=== PATIENT | female | born 1980 | race Caucasian/White ===

== ENCOUNTER 2020-01-12 20:53 | Outpatient (CLI) | payer MEDICAID, OTHER ==
[~2020-01-12] VITALS: Ht 162.6 cm; Wt 72.0 kg
--- NOTE | 2020-01-12 21:05 | NUR ---
MADDIE HEAD presented to unit via ambulatory from ED, accompanied by self, with c/o SWELLING OF LEGS. MADDIE HEAD weighed, gowned, voided, and to bed. EFHM and TOCO applied, VS taken. MADDIE HEAD oriented to bed controls, call light, TV, heat, and A/C controls. above and further assessments carried out per this rn.
[2020-01-12 21:30] VITALS: BP 114/67
[2020-01-12 21:41] LABS: BILIRUBIN,URINE NEGATIVE (NEGATIVE); CLARITY,URINE CLEAR; COLOR,URINE YELLOW; GLUCOSE, URINE (UA) NEGATIVE (NEGATIVE); KETONES,URINE 2+ (NEGATIVE); LEUKOCYTE ESTERASE ,URINE 1+ (NEGATIVE); NITRITE,URINE NEGATIVE (NEGATIVE); PROTEIN,URINE TRACE (NEGATIVE)
[2020-01-12 21:49] LABS: BACTERIA,URINE TRACE /HPF
[2020-01-12 21:50] LABS: YEAST,URINE FEW /HPF
[2020-01-12] MEDS ORDERED: AMOX125T PO (22:13)
[2020-01-12] MEDS ORDERED: fluCOnazole (DIFLUCAN) 100 MG TAB PO ONE (22:15)
[2020-01-12] MEDS ORDERED: BUPR1FIL SL (22:15)
[2020-01-12 22:20] VITALS: BP 114/57
--- NOTE | 2020-01-12 22:20 | NUR ---
Discharge packet given and explained, understanding voiced per pt, see emar.
--- NOTE | 2020-01-12 23:30 | NUR ---
Pt ambulatory off unit at this time accompanied by self as s.o has arrived with private vehicle for transport.
--- NOTE | 2020-01-13 08:06 | Physician Query-Final Dx ---
Clinic Account Progress/Dx Physician Query: Please give diagnosis Please include # weeks gestation Date of Service Jan 12, 2020 at 20:53 MISTI KHOURY Jan 13, 2020 08:06
== END 2020-01-12 23:30 | disposition home or self-care (01) ==
LOC: LDRP 20:53 → WSo 20:53
PROVIDERS: ATTEND Obstetrics & Gynecology
DX: O26.899 Other specified pregnancy related conditions, unspecified trimester (principal); M79.89 Other specified soft tissue disorders; Z3A.00 Weeks of gestation of pregnancy not specified
CPT/HCPCS: 81000; 87088; 99213

== ENCOUNTER 2020-03-01 20:06 | Outpatient (CLI) | payer MEDICAID ==
[~2020-03-01] VITALS: Ht 162.6 cm; Wt 100.8 kg
[~2020-03-01 20:06] MED LIST: AMOX125T PO; BUPR1FIL SL
--- NOTE | 2020-03-01 20:15 | NUR ---
MADDIE HEAD presented to unit via ambulation from ED, accompanied by self, with c/o LOSS OF MUCOUS PLUG;CONTRACTIONS. MADDIE HEAD weighed, gowned, voided, and to bed. EFHM and TOCO applied, VS taken. MADDIE HEAD oriented to bed controls, call light, TV, heat, and A/C controls.
[2020-03-01 20:30] VITALS: BP 103/66
[2020-03-01 20:45] VITALS: BP 103/66
[2020-03-01 20:46] VITALS: BP 103/66
[2020-03-01 20:47] LABS: BILIRUBIN,URINE NEGATIVE (NEGATIVE); CLARITY,URINE CLEAR; COLOR,URINE YELLOW; GLUCOSE, URINE (UA) NEGATIVE (NEGATIVE); KETONES,URINE NEGATIVE (NEGATIVE); LEUKOCYTE ESTERASE ,URINE NEGATIVE (NEGATIVE); NITRITE,URINE NEGATIVE (NEGATIVE); PH,URINE 6.5 (5-9); PROTEIN,URINE TRACE (NEGATIVE)
[2020-03-01 21:05] LABS: BACTERIA,URINE TRACE /HPF; RBC,URINE 0-2 /HPF; WBC,URINE 0-2 /HPF
[2020-03-01 21:06] LABS: AMORPHOUS SEDIMENT,UR RARE AMOR URATES /LPF
--- NOTE | 2020-03-01 21:08 | NUR ---
Dr. Oshea called and informed of pt arrival, pt history, pt complaints, SVE, monitor tracing, UA results, pt stating "I feel much more relaxed here, now that I'm out of that place." Orders received for discharge.
--- NOTE | 2020-03-01 21:22 | NUR ---
Discharge instructions reviewed with pt and s.o. No questions or concerns voiced. Signature sheet signed, placed on chart. Pt ambulating off unit at time with s.o. at side. No signs of distress noted.
--- NOTE | 2020-03-02 08:17 | Physician Query-Final Dx ---
MISTI KHOURY 03/02/20 0817: Clinic Account Progress/Dx Physician Query: Please give diagnosis Please include # weeks gestation Date of Service Mar 01, 2020 at 20:06 JAROCHO GUSMAN DO 03/02/20 1429: Clinic Account Progress/Dx DIAGNOSIS: Diagnosis 37 weeks IUP Vaginal discharge Irregular contractions MISTI KHOURY Mar 02, 2020 08:17 JAROCHO GUSMAN DO Mar 02, 2020 14:29
== END 2020-03-01 21:22 | disposition home or self-care (01) ==
LOC: WSo 20:06 → LDRP 20:06 → WSo 21:22
PROVIDERS: ATTEND Obstetrics & Gynecology
DX: O62.9 Abnormality of forces of labor, unspecified (principal); O26.853 Spotting complicating pregnancy, third trimester; Z3A.37 37 weeks gestation of pregnancy
CPT/HCPCS: 81000; 87088

== ENCOUNTER 2020-03-08 05:32 | Outpatient (RCR) | payer MEDICAID ==
[~2020-03-08] VITALS: Ht 162.6 cm; Wt 71.8 kg
[~2020-03-08 05:32] MED LIST changes: +BUPR2TAB SL; +MAGN400T50 PO; +PNV1TABL9 PO
== END 2020-03-08 09:22 | disposition home or self-care (01) ==
LOC: PREOP 05:32
PROVIDERS: ATTEND Obstetrics & Gynecology
DX: Z01.812 Encounter for preprocedural laboratory examination (principal); B19.20 Unspecified viral hepatitis C without hepatic coma; Z20.828 Contact with and (suspected) exposure to other viral communicable diseases
CPT/HCPCS: 87635

== ENCOUNTER 2020-03-11 12:00 | Inpatient (IN) | payer MEDICAID ==
[~2020-03-11] VITALS: Ht 162.6 cm; Wt 73.4 kg
[2020-03-12] VITALS (8 sets, daily range): BP systolic 101–119; BP diastolic 48–87
--- NOTE | 2020-03-12 08:15 | NUR ---
MADDIE HEAD admitted to room 3314-1, with an admitting diagnosis of repeat section, on 03/12/20 from via ambulation, accompanied by self. MADDIE HEAD introduced to surroundings, call light, bed controls, phone, TV, temperature control, lights, meal times, smoking policy, visitor policy, side rail policy, bathrooms and showers. Patient Rights given to patient in the handbook. MADDIE HEAD verbalizes understanding that [facility] is not responsible for the loss or damage to any personal effects or valuables that are kept in the patients posession during their hospitalization. The following Patient Care Plans were discussed with the patient: Discharge Planning, pain management. MADDIE HEAD verbalizes understanding of Interdisciplinary Patient Education. Patient and/or family were informed about the Rapid Response Team and its purpose.
[2020-03-12] MEDS ORDERED: LACTATED RINGERS 1,000 ML IV PRN (08:52)
[2020-03-12] MEDS ORDERED: METOCLOPRAMIDE INJ 10 MG/2 ML (REGLAN) ONE (08:54)
[2020-03-12] MEDS ORDERED: CLINDAMYCIN 900 MG/50 ML IVPB 50 ML IV ONE ×2 (08:55→09:00)
[2020-03-12] MEDS ORDERED: FAMOTIDINE 20MG/2ML IV (PEPCID) ONE (08:55)
[2020-03-12] MEDS ORDERED: LACTATED RINGERS 1,000 ML IV ONE (08:55)
[2020-03-12] MEDS ORDERED: CITRIC ACID/SOB CIT (BICITRA) 30 ML UDC ONE (08:55)
[2020-03-12] MEDS ORDERED: metroNIDAZOLE 500MG/100ML IVPB 100 ML ONE (08:55)
[2020-03-12] MEDS ORDERED: CATHETER FLUSH 10 ML SYR IV PRN (09:00)
[2020-03-12] MEDS ORDERED: METOCLOPRAMIDE INJ 10 MG/2 ML (REGLAN) IV ONE (09:00)
[2020-03-12] MEDS ORDERED: metroNIDAZOLE 500MG/100ML IVPB 100 ML IV ONE (09:00)
[2020-03-12] MEDS ORDERED: CITRIC ACID/SOB CIT (BICITRA) 30 ML UDC PO ONE (09:00)
[2020-03-12] MEDS: LACTATED RINGERS 1,000 ML IV PRN ×2 (09:30→11:43)
[2020-03-12 09:40] LABS: BASOPHILS % (AUTO) 0 % (0-10); EOSINOPHILS # (AUTO) 0.1 10^3/uL (0.0-0.3); EOSINOPHILS % (AUTO) 1 % (0-10); HEMATOCRIT 41 % (35-52); HEMOGLOBIN 13.2 g/dL (11.5-16.0); LYMPHOCYTES # (AUTO) 2.2 10^3/uL (1.0-4.0); LYMPHOCYTES % (AUTO) 22 % (12-44); MEAN CORPUSCULAR HEMOGLOBIN 26 pg (25-34); MEAN CORPUSCULAR HGB CONC 32 g/dL (32-36); MEAN CORPUSCULAR VOLUME 81 fL (80-99); MEAN PLATELET VOLUME 9.6 fL (9.0-12.2); MONOCYTES # (AUTO) 0.8 10^3/uL (0.0-1.0); MONOCYTES % (AUTO) 8 % (0-12); NEUTROPHILS # (AUTO) 6.6 10^3/uL (1.8-7.8); NEUTROPHILS % (AUTO) 68 % (42-75); PLATELET COUNT 351 10^3/uL (130-400); WHITE BLOOD COUNT 9.8 10^3/uL (4.3-11.0)
[2020-03-12 09:47] LABS: AMPHETAMINE SCREEN, URINE NEGATIVE (NEGATIVE); BARBITURATE SCREEN URINE NEGATIVE (NEGATIVE); BENZODIAZEPINES SCREEN URINE NEGATIVE (NEGATIVE); CANNABINOID SCREEN, URINE NEGATIVE (NEGATIVE); COCAINE SCREEN URINE NEGATIVE (NEGATIVE); METHADONE STAT NEGATIVE (NEGATIVE); METHAMPHETAMINE SCREEN URINE S NEGATIVE (NEGATIVE); OPIATE SCREEN URINE NEGATIVE (NEGATIVE); OXYCODONE STAT NEGATIVE (NEGATIVE); PROPOXYPHENE STAT NEGATIVE (NEGATIVE); TRICYCLIC ANTIDEPRESSANTS SCRE NEGATIVE (NEGATIVE)
[2020-03-12 09:58] LABS: BILIRUBIN,URINE NEGATIVE (NEGATIVE); CLARITY,URINE SL CLOUDY; COLOR,URINE YELLOW; GLUCOSE, URINE (UA) NEGATIVE (NEGATIVE); KETONES,URINE 1+ (NEGATIVE); LEUKOCYTE ESTERASE ,URINE NEGATIVE (NEGATIVE); NITRITE,URINE NEGATIVE (NEGATIVE); PROTEIN,URINE TRACE (NEGATIVE)
[2020-03-12 10:00] LABS: ALANINE AMINOTRANSFERASE 44 U/L (0-55); ALBUMIN 3.3 GM/DL (3.2-4.5); ALKALINE PHOSPHATASE 157 U/L (40-136); BILIRUBIN,TOTAL 0.5 MG/DL (0.1-1.0); BUN/CREATININE RATIO 10; CALCIUM 8.9 MG/DL (8.5-10.1); CARBON DIOXIDE 17 MMOL/L (21-32); CHLORIDE 105 MMOL/L (98-107); CREATININE SERUM 0.62 MG/DL (0.60-1.30); GFR ESTIMATED > 60; GLUCOSE 77 MG/DL (70-105); POTASSIUM 3.6 MMOL/L (3.6-5.0); SODIUM 137 MMOL/L (135-145); TOTAL PROTEIN 5.9 GM/DL (6.4-8.2)
[2020-03-12] MEDS ORDERED: OXYTOCIN PRE-MIX DRIP 500 ML IV SCH (10:08)
--- NOTE | 2020-03-12 10:08 | History & Physical-OB ---
OB - Chief Complaint & HPI Date/Time Date of Admission: Date of Admission: Mar 12, 2020 at 8:15 am Date seen by a Provider: Mar 12, 2020 Time Seen by a Provider: 09:30 Chief Complaint/History OB-Reason for Admission/Chief: Section Hx : 2 Hx Para: 1 Expected Date of Delivery: Mar 17, 2020 Gestational Age in Weeks: 39 Gestational Age in Days: 2 Indication for : desires repeat Admission Nurse Assessment Rev: Yes History of Labs Opos Antibody neg RI RPR NR HBsAg NR HIV NR GC neg GBS neg Allergies and Home Medications Allergies Coded Allergies: cefaclor (Verified Allergy, Unknown, 01/12/20) morphine (Verified Allergy, Unknown, 01/12/20) sulfamethoxazole (Verified Allergy, Unknown, 01/12/20) trimethoprim (Verified Allergy, Unknown, 01/12/20) Home Medications Buprenorphine HCl 2 Mg Tab.subl, 2 MG SL TID, (Reported) Magnesium Oxide 400 Mg Tablet, 400 MG PO DAILY, (Reported) Pnv Cmb#21/Iron/Folic Acid 1 Each Tablet, 1 EACH PO DAILY, (Reported) Patient Home Medication List Home Medication List Reviewed: Yes OB - History Hx of Present Care: Yes (Late care starting at 30 weeks) Obstetrical Complications: Other (Late care) Medical Complications: Other (HepC history, Opioid dependence on Suboxone therapy) Patient Past Medical History HC history, Hx of Drug use Social History/Family History 2nd Hand Smoke Exposure: No OB - Admission Exam Physical Exam HEENT: NCAT Heart: Rhythm Normal Lungs: Clear Abdomen: Gravid Extremities: Normal Reflexes: Normal Heart Rate: 130's Accelerations: Accelerations Present Decelerations: No Decelerations Short Term Variability: Present [place]ather Variability: Average (6-25) Contractions on Admission: >10 Minutes Apart Labs Laboratory Tests Test 03/12/20 09:00 03/12/20 09:20 Range/Units Urine Opiates Screen NEGATIVE NEGATIVE Urine Oxycodone Screen NEGATIVE NEGATIVE Urine Methadone Screen NEGATIVE NEGATIVE Urine Propoxyphene Screen NEGATIVE NEGATIVE Urine Barbiturates Screen NEGATIVE NEGATIVE Ur Tricyclic Antidepressants Screen NEGATIVE NEGATIVE Urine Phencyclidine Screen NEGATIVE NEGATIVE Urine Amphetamines Screen NEGATIVE NEGATIVE Urine Methamphetamines Screen NEGATIVE NEGATIVE Urine Benzodiazepines Screen NEGATIVE NEGATIVE Urine Cocaine Screen NEGATIVE NEGATIVE Urine Cannabinoids Screen NEGATIVE NEGATIVE White Blood Count 9.8 4.3-11.0 10^3/uL Red Blood Count 5.08 3.80-5.11 10^6/uL Hemoglobin 13.2 11.5-16.0 g/dL Hematocrit 41 35-52 % Mean Corpuscular Volume 81 80-99 fL Mean Corpuscular Hemoglobin 26 25-34 pg Mean Corpuscular Hemoglobin Concent 32 32-36 g/dL Red Cell Distribution Width 22.7 H 10.0-14.5 % Platelet Count 351 130-400 10^3/uL Mean Platelet Volume 9.6 9.0-12.2 fL Immature Granulocyte % (Auto) 1 % Neutrophils (%) (Auto) 68 42-75 % Lymphocytes (%) (Auto) 22 12-44 % Monocytes (%) (Auto) 8 0-12 % Eosinophils (%) (Auto) 1 0-10 % Basophils (%) (Auto) 0 0-10 % Neutrophils # (Auto) 6.6 1.8-7.8 10^3/uL Lymphocytes # (Auto) 2.2 1.0-4.0 10^3/uL Monocytes # (Auto) 0.8 0.0-1.0 10^3/uL Eosinophils # (Auto) 0.1 0.0-0.3 10^3/uL Basophils # (Auto) 0.0 0.0-0.1 10^3/uL Immature Granulocyte # (Auto) 0.1 0.0-0.1 10^3/uL OB - Assessment/Plan/Diagnosis Assessment Assessment: section Admission Dx 39 yo @ 39.2 weeks Previous HepC hx Currently on suboxone therapy Hx of drug abuse Admission Status: Inpatient Order (span 2 midnights) Reason for Inpatient Admission: Repeat at term Plan Plan: Section JAROCHO GUSMAN DO Mar 12, 2020 10:08 am
[2020-03-12] MEDS ORDERED: ONDANSETRON 4 MG/2 ML (SDV) Z0FRAN IVP PRN (10:15)
[2020-03-12] MEDS ORDERED: MEASLES,MUMPS,RUBELLA 1 EA INJ SC SCH (10:15)
[2020-03-12] MEDS ORDERED: TETANUS,DIPTH,PERTUSS P/F (BOOSTRIX) 0.5 ML VIAL IM SCH (10:15)
[2020-03-12 10:17] LABS: AMORPHOUS SEDIMENT,UR FEW AMOR URATES /LPF; BACTERIA,URINE MODERATE /HPF; SQUAMOUS EPITHELIAL CELL,UR 25-50 /HPF
[2020-03-12] MEDS ORDERED: HYDR-34 PO (10:18)
[2020-03-12] MEDS ORDERED: IBUP-844 PO (10:18)
[2020-03-12] MEDS ORDERED: DCS100C PO (10:18)
--- NOTE | 2020-03-12 10:19 | Discharge Inst-Women's Service ---
Discharge Inst-Women's Serv Depart Medication/Instructions New, Converted or Re-Newed RX: RX on Chart Final Diagnosis POD 3 RLTCS Problems Reviewed?: Yes Consults/Follow Up Additional Follow Up: Yes Orders/Referrals Dr. Oshea in 7-10 days and in 6 weeks. Regular follow up with Dr. Ocasio Activity Activity: Activity as Tolerated Driving Instructions: No Driving for 1 Week NO SMOKING: NO SMOKING Nothing Inside Vagina: No Douching, No [place], No Tampons Diet Discharge Diet: No Restrictions Symptoms to Report to : Bleeding Excessive, Pain Increased, Fever Over 101 Degrees F, Vaginal Bleeding Increase, Questions/Concerns For Any Problems or Questions: Contact Your Physician Skin/Wound Care Infection Signs and Symptoms: Increased Redness, Foul Odor of Wound, Increased Drainage, Skin Itchy or Has a Rash, Increased Swelling, Temperature Above 101 F Operative Area Clean and Dry: Keep Incision Clean/Dry Stitches/Pablo/Dermabond: Dermabond, Care of Stitches Bathing Instructions: JAROCHO Nelson DO Mar 12, 2020 10:19 am
[2020-03-12] MEDS ORDERED: fentaNYL INJECTION 100 MCG/2 ML AMP ONE (10:42)
[2020-03-12] MEDS ORDERED: PHENYLEPHRINE 100 MCG/ML 10 ML (ANESTHESIA) SYR ONE (11:11)
[2020-03-12] MEDS ORDERED: OXYTOCIN PRE-MIX DRIP 1,000 ML IV ONE (11:11)
[2020-03-12] MEDS ORDERED: ONDANSETRON 4 MG/2 ML (SDV) Z0FRAN ONE (11:35)
[2020-03-12] MEDS ORDERED: CATHETER FLUSH 10 ML SYR IV SCH (14:00)
[2020-03-12] MEDS: KETOROLAC 30 MG/ML VIAL IV SCH ×2 (14:20→20:26)
--- NOTE | 2020-03-12 15:19 | NUR ---
CM/SS visited with patient for social service consult. [facility] report ID: [id number]- This sw made report for close follow up and services/education to be provided for patient. This worker does not have an immediate concern for baby's safety and wellbeing. The patient was defensive when this sw introduced herself. She was "perturbed" that this sw was given the information about where she lived and her past history of drug use. She asked this sw if it was allowed for me to know that. CM/SS calmly explained role of social welfare research worker and that this sw cannot take the baby as it appeared to be the main concern. After the patient understood role of social welfare research worker patient appeared to calm down and open up. This sw and the patient discussed different resources in the area. Home: Patient lives in a [facility] in [place]. She has been living there for 3 months. She reports that she receives counseling via zoom currently. They have moved the patient into an individual house; therefore they wont be exposed to Covid. The patient owns her own home here in [place]. Substance use: The patient would not elaborate about past substance use history. However, she reports being clean for the last 3 months. She states they test her every other day at the home. She is interested in participating with [facility]'s outpatient drug and alcohol and mental health counseling. The patient states that at this time the reintegration home does not seem like they want her doing that. Supports: The patient had a close friend in the room with her. She was also a resident of the women's home. The patient does want the father of the baby to be present in the life and for them to do counseling together. Resources: This sw gave the patient resources for Parents as Teachers, WIC, Healthy Families and [facility] [employer]. The patient was curious about having resources and used to have Parents as Teachers. She seemed interested in re-enrolling. CM/SS will follow.
[2020-03-12] MEDS: HYDROcodone/APAP 7.5 MG/325 MG (LORTAB, LORCET PLUS) TABLET PO PRN ×2 (19:13→20:59)
[2020-03-12] MEDS: DOCUSATE SODIUM 100 MG (COLACE) CAP PO SCH (20:25)
[2020-03-13] MEDS ORDERED: IBUPROFEN 600 MG (MOTRIN) TAB PO ONE ×2 (02:19→08:37)
[2020-03-13] MEDS: IBUPROFEN 600 MG (MOTRIN) TAB PO SCH ×2 (02:25→08:46)
[2020-03-13 02:27] VITALS: BP 108/57
[2020-03-13] MEDS: HYDROcodone/APAP 7.5 MG/325 MG (LORTAB, LORCET PLUS) TABLET PO PRN ×2 (02:30→08:45)
[2020-03-13 06:30] VITALS: BP 118/80
[2020-03-13 07:22] LABS: BASOPHILS % (AUTO) 0 % (0-10); EOSINOPHILS # (AUTO) 0.2 10^3/uL (0.0-0.3); EOSINOPHILS % (AUTO) 2 % (0-10); HEMATOCRIT 37 % (35-52); HEMOGLOBIN 11.8 g/dL (11.5-16.0); LYMPHOCYTES # (AUTO) 2.4 10^3/uL (1.0-4.0); LYMPHOCYTES % (AUTO) 23 % (12-44); MEAN CORPUSCULAR HEMOGLOBIN 27 pg (25-34); MEAN CORPUSCULAR HGB CONC 32 g/dL (32-36); MEAN CORPUSCULAR VOLUME 84 fL (80-99); MEAN PLATELET VOLUME 9.8 fL (9.0-12.2); MONOCYTES % (AUTO) 10 % (0-12); NEUTROPHILS # (AUTO) 6.8 10^3/uL (1.8-7.8); NEUTROPHILS % (AUTO) 65 % (42-75); PLATELET COUNT 310 10^3/uL (130-400); WHITE BLOOD COUNT 10.4 10^3/uL (4.3-11.0)
--- NOTE | 2020-03-13 08:07 | Postpartum Progress Note ---
Note Note Day # 1 Subjective: Patient is without complaints. Ambulating, voiding. Tolerating a regular diet without nausea or vomiting. Normal lochia. Pain is well controlled with oral pain medications. Objective: Physical Exam: General - Alert and oriented, no apparent distress Abdomen - Soft, appropriately tender to palpation, non-distended, fundus firm at umbilicus Extremities - no edema, negative Kristin's bilaterally Incision- c/d/i Assessment: POD 1 RLTCS Acute blood loss anemia Hx of Ilicit drug use Hep C hx Plan: Routine care. technical services assistant consultation Encourage breast feeding. Encourage ambulation. Ferrous sulfate supplementation. Plan for discharge Sunday Vitals - Labs Vital Signs - I&O Vital Signs Date Time Temp Pulse Resp B/P (MAP) Pulse Ox O2 Delivery O2 Flow Rate FiO2 03/13/20 06:30 37.2 68 18 118/80 (93) 99 Room Air 03/13/20 02:27 37.2 65 16 108/57 (74) 97 Room Air 03/12/20 18:20 36.9 89 20 119/87 (98) 98 Room Air 03/12/20 13:30 36.6 85 20 113/79 (90) 98 Room Air 03/12/20 12:59 36.5 18 118/74 (89) 98 Room Air 03/12/20 12:45 36.6 18 111/79 (90) 98 Room Air 03/12/20 12:30 36.4 18 112/77 (89) 98 Room Air 03/12/20 12:15 36.5 18 102/66 (78) 99 Room Air 03/12/20 11:59 36.5 18 101/48 (65) 99 Room Air 03/12/20 09:00 36.5 88 20 97 Room Air I & O 03/13/20 07:00 Intake Total 1650 ml Output Total 125 ml Balance 1525 ml Labs Laboratory Tests 03/12/20 09:00: Urine Color YELLOW, Urine Clarity SL CLOUDY, Urine pH 6.0, Urine Specific [place] >=1.030, Urine Protein TRACEH, Urine Glucose (UA) NEGATIVE, Urine Ketones 1+H, Urine Nitrite NEGATIVE, Urine Bilirubin NEGATIVE, Urine Urobili nogen 0.2, Urine Leukocyte Esterase NEGATIVE, Urine RBC (Auto) NEGATIVE, Urine RBC NONE, Urine WBC 5-10H, Urine Squamous Epithelial Cells 25-50H, Urine Crystals PRESENTH, Urine Amorphous Sediment FEW JULIENNE URATESH, Urine Bacteria MODERATEH, Urine Casts NONE, Urine Mucus NEGATIVE, Urine Culture Indicated YES, Urine Opiates Screen NEGATIVE, Urine Oxycodone Screen NEGATIVE, Urine Methadone Screen NEGATIVE, Urine Propoxyphene Screen NEGATIVE, Urine Barbiturates Screen NEGATIVE, Ur Tricyclic Antidepressants Screen NEGATIVE, Urine Phencyclidine Screen NEGATIVE, Urine Amphetamines Screen NEGATIVE, Urine Methamphetamines Screen NEGATIVE, Urine Benzodiazepines Screen NEGATIVE, Urine Cocaine Screen NEGATIVE, Urine Cannabinoids Screen NEGATIVE 03/12/20 09:20: White Blood Count 9.8, Red Blood Count 5.08, Hemoglobin 13.2, Hematocrit 41, Mean Corpuscular Volume 81, Mean Corpuscular Hemoglobin 26, Mean Corpuscular Hemoglobin Concent 32, Red Cell Distribution Width 22.7H, Platelet Count 351, Mean Platelet Volume 9.6, Immature Granulocyte % (Auto) 1, Neutrophils (%) (Auto) 68, Lymphocytes (%) (Auto) 22, Monocytes (%) (Auto) 8, Eosinophils (%) (Auto) 1, Basophils (%) (Auto) 0, Neutrophils # (Auto) 6.6, Lymphocytes # (Auto) 2.2, Monocytes # (Auto) 0.8, Eosinophils # (Auto) 0.1, Basophils # (Auto) 0.0, Immature Granulocyte # (Auto) 0.1, Sodium Level 137, Potassium Level 3.6, Chloride Level 105, Carbon Dioxide Level 17L, Anion Gap 15H, Blood Urea Nitrogen 6L, Creatinine 0.62, Estimat Glomerular Filtration Rate > 60, BUN/Creatinine Ratio 10, Glucose Level 77, Calcium Level 8.9, Corrected Calcium 9.5, Total Bilirubin 0.5, Aspartate Amino Transf (AST/SGOT) 47H, Alanine Aminotransferase (ALT/SGPT) 44, Alkaline Phosphatase 157H, Total Protein 5.9L, Albumin 3.3 03/13/20 07:04: White Blood Count 10.4, Red Blood Count 4.44, Hemoglobin 11.8, Hematocrit 37, Mean Corpuscular Volume 84, Mean Corpuscular Hemoglobin 27, Mean Corpuscular Hemoglobin Concent 32, Red Cell Distribution Width 23.3H, Platelet Count 310, Mean Platelet Volume 9.8, Immature Granulocyte % (Auto) 1, Neutrophils (%) (Auto) 65, Lymphocytes (%) (Auto) 23, Monocytes (%) (Auto) 10, Eosinophils (%) (Auto) 2, Basophils (%) (Auto) 0, Neutrophils # (Auto) 6.8, Lymphocytes # (Auto) 2.4, Monocytes # (Auto) 1.0, Eosinophils # (Auto) 0.2, Basophils # (Auto) 0.0, Immature Granulocyte # (Auto) 0.1 JAROCHO GUSMAN DO Mar 13, 2020 08:07
[2020-03-13 08:30] VITALS: BP 119/66
--- NOTE | 2020-03-13 08:30 | NUR ---
A.M. ASSESSMENT COMPLETED. VSS. PLAN FOR DISCHARGE TODAY.
[2020-03-13] MEDS: DOCUSATE SODIUM 100 MG (COLACE) CAP PO SCH (08:45)
--- NOTE | 2020-03-13 10:30 | Anesthesia-Regional Post-Op ---
Regional Patient Condition Mental Status: Alert, Oriented x3 Circulation: Same as Pre-Op Headache: Absent Sensation: Full Recovery Motor Block: Absent Post Op Complications Complications None Follow Up Care/Instructions Patient Instructions None needed. Anesthesia/Patient Condition Patient is doing well, no complaints, stable vital signs, no apparent adverse anesthesia problems. No complications reported per nursing. D/C home per [facility] [place] Criteria: KAM Regalado CRNA Mar 13, 2020 10:30
--- NOTE | 2020-03-13 10:50 | NUR ---
DISCHARGE INSTRUCTIONS REVIEWED WITH COPY TO PT. RXS GIVEN. STATES UNDERSTANDING OF ALL INSTRUCTIONS AND NEED TO F/U SCHEDULED AND NEEDED.
[2020-03-13 11:30] VITALS: BP 119/66
--- NOTE | 2020-03-13 11:30 | NUR ---
DISMISSED AMB FROM [facility] IN STABLE CONDITION TO [facility]ILY [facility] BY FRIEND AND SANDRA MCGINNIS RN.
--- NOTE | 2020-03-13 14:11 | OPERATIVE REPORT ---
DATE OF SERVICE: PREOPERATIVE DIAGNOSES: 1. A 39-year-old G2, P1 at 39 weeks gestation. 2. Previous section. 3. History of illicit drug use on naloxone therapy. 4. History of hepatitis C. POSTOPERATIVE DIAGNOSES: 1. A 39-year-old G2, P1 at 39 weeks gestation. 2. Previous section. 3. History of illicit drug use on naloxone therapy. 4. History of hepatitis C. PROCEDURE: Repeat low transverse section. SURGEON: Glenn Gusman DO SHERIFFS OFFICER: Leisa Washburn DNP, who was necessary for manipulation and retraction throughout the procedure. ANESTHESIA: Spinal. ESTIMATED BLOOD LOSS: 500 mL. URINE OUTPUT: 125 mL clear at the end of the procedure. FLUIDS: 1500 mL of lactated Ringer's solution. FINDINGS: A live male , weight and Apgars pending. Grossly normal appearing uterus, bilateral fallopian tubes and ovaries. SPECIMEN SENT: Placenta. INDICATIONS FOR PROCEDURE: This is a 39-year-old female is a patient who had sought late care after being placed in a [facility] [place] [facility] and working with paint spraying machine operator helper on naloxone therapy at approximately 28 to 30 weeks, she came to my office to assume care. Maternal medicine consult was obtained, which recommended monitoring liver enzymes and delivery at 39 weeks. We discussed repeating . Risks of the procedure was discussed with the patient in detail including risk of bleeding, infection, damage to surrounding structures including, but not limited to bowel, bladder, ureter, kidneys, possible need for reoperation, postoperative complications that may occur, risk from anesthesia, possible need for blood transfusion and even . After everything was discussed with the patient in detail, consent was obtained in the preoperative area, the patient was taken to the operating room. OPERATIVE REPORT IN DETAIL: Once in the operating room, spinal analgesia was found to be adequate. She was placed in dorsal lithotomy position, prepped and draped in normal sterile fashion. Timeout was performed and anesthesia was tested. I then make a Pfannenstiel skin incision through the previously existing scar using knife and carried down to the underlying fascia using Bovie cautery. The fascial incision extended laterally using Bovie cautery. Superior aspect of fascial incision was then grasped with Jackelyn clamps, tented up and dissected off the underlying rectus muscles. The inferior aspect of fascial incision was then grasped with Jackelyn clamps, tented up and dissected off the underlying rectus muscles. Rectus muscles were then dissected down the midline using sharp and blunt dissection. This exposed the peritoneum, which I entered bluntly and extended using blunt traction. Jose Manuel ring retractor was placed in the peritoneal incision, which offered excellent lateral sidewall retraction. I then identified the lower uterine segment, which was found to be thinned out and make a low transverse incision to the vesicouterine peritoneum and bluntly dissected off the lower uterine segment. I proceeded with my myotomy until membranes were visualized, at which point I extended the uterine incision laterally and superiorly using bandage scissors. Amniotomy is performed using Allis clamp. Clear fluid was noted. was found in the breech presentation. With gentle fundal pressure, the 's buttocks were elevated up the incision where it was delivered through the incision. The legs are delivered spontaneously by delivering the infant up to the upper torso. The arms were then delivered by sweeping them across the chest and then the head was then delivered by lifting the body and creating flexion of the head through the incision, at which point the nares and oropharynx were bulb suctioned. The was laid on the operative field. Cord was doubly clamped and cut and was handed off to waiting nurses in attendance. Cord blood was collected, 3-vessel cord with intact placenta was delivered spontaneously thereafter. IV Pitocin was initiated to facilitate uterine contraction. Uterine fundus firmer with bimanual massage. The uterus was then exteriorized and cleared of all endometrial clots and debris. I then proceeded with closing the uterine incision using 0 Vicryl suture in a running locked fashion. Second layer of imbricating 0 Monocryl was placed. Excellent hemostasis was noted after doing this. I then placed the uterus back within the pelvis and copiously irrigated the pelvis using normal saline. Once again, there was no active bleeding noted from any of my dissection planes. I placed Interceed antiadhesive over my low transverse incision and removed the Jose Manuel ring retractor and then proceeded with closing the peritoneum using 3-0 Vicryl suture in running fashion. The rectus muscles were reapproximated using 3-0 Vicryl suture in interrupted fashion. The fascia was reapproximated using 0 Vicryl suture in a running fashion. The subcutaneous tissue is very thin; therefore, I just proceeded with closing the skin using 4-0 Monocryl in a running subcuticular. Dermabond was applied to the incision and sterile dressing with adhesive white tape. Two grams of Ancef given preoperatively for infection prophylaxis. The patient tolerated the procedure well and sent to recovery in stable condition. Lap and sponge count was correct at the end of the procedure. Instrument counts correct as well. Job ID: [id number] DocumentID: [id number] Dictated Date: 03/13/2020 08:20:56 Robotic Machine Operator Date: 03/13/2020 14:11:21 Dictated By: GLENN GUSMAN DO
== END 2020-03-13 11:30 | disposition home or self-care (01) | DRG 787 ==
LOC: LDRP 03-12 08:15
PROVIDERS: ADMIT Obstetrics & Gynecology; ATTEND Obstetrics & Gynecology
PROC: 10D00Z1 Extraction of Products of Conception, Low, Open Approach (ICD-10-PCS; principal; 2020-03-13)
DX: O34.211 Maternal care for low transverse scar from previous cesarean delivery (principal); D62 Acute posthemorrhagic anemia; O98.42 Viral hepatitis complicating childbirth; O99.324 Drug use complicating childbirth; F11.20 Opioid dependence, uncomplicated; Z3A.39 39 weeks gestation of pregnancy; Z37.0 Single live birth; B19.20 Unspecified viral hepatitis C without hepatic coma; O90.81 Anemia of the puerperium
CPT/HCPCS: 36415; 80053; 80306; 81000; 85025; 85027; 86850; 86900; 86901; 87088; 90715; 94664

== ENCOUNTER 2020-08-09 23:16 | Emergency (ER) | payer MEDICAID ==
[~2020-08-09] VITALS: Ht 163 cm; Wt 59.0 kg
[~2020-08-09 23:16] MED LIST changes: +DCS100C PO; +HYDR-34 PO; +IBUP-844 PO
[2020-08-09] MEDS ORDERED: ONDANSETRON 4 MG/2 ML (SDV) Z0FRAN IVP ONE (23:30)
[2020-08-09] MEDS ORDERED: LACTATED RINGERS 1,000 ML IV ONE (23:30)
[2020-08-09 23:39] LABS: BILIRUBIN,URINE NEGATIVE (NEGATIVE); CLARITY,URINE CLEAR; COLOR,URINE YELLOW; GLUCOSE, URINE (UA) NEGATIVE (NEGATIVE); KETONES,URINE 1+ (NEGATIVE); LEUKOCYTE ESTERASE ,URINE NEGATIVE (NEGATIVE); NITRITE,URINE NEGATIVE (NEGATIVE); PROTEIN,URINE NEGATIVE (NEGATIVE)
[2020-08-09 23:48] LABS: BACTERIA,URINE NEGATIVE /HPF
[2020-08-09 23:57] LABS: AMPHETAMINE SCREEN, URINE NEGATIVE (NEGATIVE); BARBITURATE SCREEN URINE NEGATIVE (NEGATIVE); BENZODIAZEPINES SCREEN URINE NEGATIVE (NEGATIVE); CANNABINOID SCREEN, URINE NEGATIVE (NEGATIVE); COCAINE SCREEN URINE NEGATIVE (NEGATIVE); METHADONE STAT NEGATIVE (NEGATIVE); METHAMPHETAMINE SCREEN URINE S NEGATIVE (NEGATIVE); OPIATE SCREEN URINE NEGATIVE (NEGATIVE); OXYCODONE STAT NEGATIVE (NEGATIVE); PROPOXYPHENE STAT NEGATIVE (NEGATIVE); TRICYCLIC ANTIDEPRESSANTS SCRE NEGATIVE (NEGATIVE)
[2020-08-10 00:09] LABS: BASOPHILS % (AUTO) 0 % (0-10); EOSINOPHILS # (AUTO) 0.1 10^3/uL (0.0-0.3); EOSINOPHILS % (AUTO) 2 % (0-10); HEMATOCRIT 43 % (35-52); HEMOGLOBIN 14.4 g/dL (11.5-16.0); LYMPHOCYTES # (AUTO) 1.9 10^3/uL (1.0-4.0); LYMPHOCYTES % (AUTO) 30 % (12-44); MEAN CORPUSCULAR HEMOGLOBIN 30 pg (25-34); MEAN CORPUSCULAR HGB CONC 33 g/dL (32-36); MEAN CORPUSCULAR VOLUME 90 fL (80-99); MEAN PLATELET VOLUME 9.3 fL (9.0-12.2); MONOCYTES # (AUTO) 0.5 10^3/uL (0.0-1.0); MONOCYTES % (AUTO) 7 % (0-12); NEUTROPHILS # (AUTO) 3.9 10^3/uL (1.8-7.8); NEUTROPHILS % (AUTO) 60 % (42-75); PLATELET COUNT 247 10^3/uL (130-400); WHITE BLOOD COUNT 6.5 10^3/uL (4.3-11.0)
[2020-08-10 00:21] LABS: ALBUMIN 4.4 GM/DL (3.2-4.5); CHLORIDE 103 MMOL/L (98-107); POTASSIUM 3.5 MMOL/L (3.6-5.0); SODIUM 141 MMOL/L (135-145)
[2020-08-10 00:24] LABS: GLUCOSE 89 MG/DL (70-105); TOTAL PROTEIN 6.8 GM/DL (6.4-8.2)
[2020-08-10 00:25] LABS: BILIRUBIN,TOTAL 0.4 MG/DL (0.1-1.0); CARBON DIOXIDE 24 MMOL/L (21-32)
[2020-08-10 00:27] LABS: ALKALINE PHOSPHATASE 59 U/L (40-136); CREATININE SERUM 0.82 MG/DL (0.60-1.30); GFR ESTIMATED > 60
[2020-08-10 00:29] LABS: BUN/CREATININE RATIO 17
[2020-08-10 00:30] LABS: ACETAMINOPHEN < 10 UG/ML (10-30); ALANINE AMINOTRANSFERASE 14 U/L (0-55); SALICYLATE < 5.0 MG/DL (5.0-20.0)
[2020-08-10] MEDS ORDERED: LACTATED RINGERS 1,000 ML IV ONE (00:45)
[2020-08-10] MEDS ORDERED: ACETAMINOPHEN 500 MG TAB (TYLENOL) PO ONE (00:45)
[2020-08-10 00:50] LABS: MAGNESIUM 2.1 MG/DL (1.6-2.4)
[2020-08-10] MEDS ORDERED: RX-ONDANSETRON 4 MG ODT (ZOFRAN) PPK #4 PO STA (01:51)
--- NOTE | 2020-08-10 01:52 | ED General ---
General Chief Complaint: Head/Cervical Problems Stated Complaint: POSS OVERDOSE Nursing Triage Note: c/o headache/n/v x1hr. 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 ) STATES SHE HAS BEEN CLEAN FOR A YEAR PT HAS BEEN ON ORAL SUBOXONE FOR ABOUT A YEAR, AND HER LAST DOSE WAS YESTERDAY PT WAS SEEN BY MANA[facility] MANAGEMENT AT [facility] TODAY AND WAS GIVEN HER FIRST INJECTION OF SUBLOCADE/BUPRENORPHINE AROUND 1545 PT THINKS SHE IS HAVING A REACTION TO THE MEDICATION STATES SHE HAS FELT FINE ALL DAY, FELT FINE AT DINNER TONIGHT NO VISION CHANGES NO DIZZINESS NO PARESTHESIAS OR MOTOR DEFICITS NO DIFFICULTY SPEAKING OR WALKING NO CONFUSION NO CHEST PAIN NO SHORTNESS OF BREATH NO PALPITATIONS NO ABDOMINAL PAIN OR CRAMPING NO DIARRHEA NO NECK PAIN OR STIFFNESS NO FEVER OR RECENT ILLNESS NO SYNCOPE DENIES KNOWN SICK CONTACTS OR EXPOSURE TO COVID-19 LMP 2 WEEKS AGO, NORMAL. NO CONTROL. HAS NEXPLANON IN HER LEFT ARM. PT DELIVERED 4 MONTHS AGO, AND MALE S.O. AND CHILD ARE IN ER WITH HER. NO COMPLICATIONS WITH DELIVERY PT IS CURRENTLY RECEIVING TREATMENT FOR HEPATITIS C WELL. PCP: DR. Callum REYES AT [facility] [place]ergies and Home Medications Allergies Coded Allergies: cefaclor (Verified Allergy, Unknown, 01/12/20) morphine (Verified Allergy, Unknown, 01/12/20) sulfamethoxazole (Verified Allergy, Unknown, 01/12/20) trimethoprim (Verified Allergy, Unknown, 01/12/20) Home Medications Buprenorphine HCl 2 Mg Tab.subl, 2 MG SL TID, (Reported) Docusate Sodium 100 Mg Capsule, 100 MG PO BID PRN for CONSTIPATION-1ST LINE Prescribed by: JAROCHO GUSMAN on 03/12/20 1018 Hydrocodone Bit/Acetaminophen 1 Ea Tablet, 1-2 EA PO Q6HR PRN for PAIN-MODERATE (5-7) Prescribed by: JAROCHO GUSMAN on 03/12/20 1018 Ibuprofen 600 Mg Tablet, 600 MG PO Q6HR Prescribed by: JAROCHO GUSMAN on 03/12/20 1018 Magnesium Oxide 400 Mg Tablet, 400 MG PO DAILY, (Reported) Pnv Cmb#21/Iron/Folic Acid 1 Each Tablet, 1 EACH PO DAILY, (Reported) Patient Home Medication List Home Medication List Reviewed: Yes Review of Systems Review of Systems Constitutional: see HPI; No chills; diaphoresis; No dizziness, No fever EENTM: no symptoms reported; No ear pain, No blurred vision, No double vision, No nose congestion, No throat pain Respiratory: no symptoms reported; No cough, No short of breath Cardiovascular: no symptoms reported; No chest pain, No palpitations, No syncope Gastrointestinal: see HPI; No abdominal pain, No diarrhea; nausea, vomiting Genitourinary: no symptoms reported LMP: Jul 26, 2020 Musculoskeletal: no symptoms reported; No back pain, No neck pain Skin: no symptoms reported Psychiatric/Neurological: See HPI, Headache; Denies Numbness, Denies Paresthesia, Denies Seizure, Denies Tingling, Denies Tremors, Denies Weakness Hematologic/Lymphatic: No Symptoms Reported Immunological/Allergic: no symptoms reported Past Lfsqgof-Ecqbpn-Dwrykr Hx Past Med/Social Hx: Reviewed and Corrections made Patient Social History Alcohol Use: Denies Use Drug of Choice: IV AND RX DRUG ABUSE ( OXYCONTIN) Smoking Status: Former Smoker Type Used: Cigarettes 2nd Hand Smoke Exposure: No Recent Infectious Disease Expo: No Recent Hopitalizations: No Substance type: Methamphetamine, Opiates/Opioids, Misuse of prescript meds Immunizations Up To Date Tetanus Booster (TDap): Unknown PED Vaccines UTD: Yes Seasonal Allergies Seasonal Allergies: No Past Medical History Surgeries: Yes ( X 2) Adenoidectomy, Section, Tonsillectomy Respiratory: No Currently Using CPAP: No Currently Using BIPAP: No Cardiac: No Neurological: No : No Female Reproductive Disorders: Denies Genitourinary: No Gastrointestinal: Yes (HEP C--RECEIVING TREATMENT OF 08/09/20, FATTY LIVER) Colitis, Hepatitis Musculoskeletal: No Endocrine: No HEENT: No Cancer: No Psychosocial: Yes (POLYSUBSTANCE ABUSE) Anxiety, Depression Integumentary: No Blood Disorders: No Adverse Reaction/Blood Tranf: No Family Medical History Patient reports no known family medical history. SOCIAL HISTORY: -ETOH--DENIES USE -DRUGS--+IV METH USE, OPOID ABUSE ( OXYCONTIN ) ---PT HAS BEEN ON SUBOXONE TREATMENT FOR APPROXIMATELY 1 YEAR, OF 08/09/20 -SMOKED 1 PPD--QUIT Physical Exam Vital Signs Vital Signs - First Documented 08/09/20 23:24 Temp 36.0 Pulse 58 Resp 16 B/P (MAP) 128/80 (96) Pulse Ox 97 O2 Delivery Room Air Capillary Refill : Less Than 3 Seconds Height, Weight, BMI Height: '" Weight: lbs. oz. kg; 22.00 BMI Method: General Appearance: No Apparent Distress, WD/WN, Other (DRY HEAVING ON ARRIVAL) HEENT: PERRL/EOMI, Normal ENT Inspection, Pharynx Normal Neck: Full Range of Motion, Normal Inspection, Non Tender, Supple Respiratory: Normal Breath Sounds, No Accessory Muscle Use, No Respiratory Di stress Cardiovascular: Regular Rate, Rhythm, No Murmur Gastrointestinal: Non Tender, Soft Back: No CVA Tenderness Extremity: Normal Capillary Refill, Normal Inspection, No Pedal Edema Neurologic/Psychiatric: Alert, Oriented x3, No Motor/Sensory Deficits, edger technician II- XII Norm as Tested; No Abnormal Cerebellar Tests Skin: Normal Color, Warm/Dry; No Rash Progress/Results/Core Measures Suspected Sepsis Recent Fever Within 48 Hours: No Infection Criteria Present: None New/Unexplained Altered Menta: No Sepsis Screen: No Definite Risk SIRS Temperature: Pulse: 58 Respiratory Rate: 16 Laboratory Tests 08/09/20 23:40: White Blood Count 6.5 Blood Pressure 128 /80 Mean: 96 Laboratory Tests 08/09/20 23:40: Creatinine 0.82, Platelet Count 247, Total Bilirubin 0.4 Results/Orders Lab Results Laboratory Tests Test 08/09/20 23:30 08/09/20 23:40 Range/Units Urine Color YELLOW Urine Clarity CLEAR Urine pH 6.0 5-9 Urine Specific Mereta >=1.030 1.016-1.022 Urine Protein NEGATIVE NEGATIVE Urine Glucose (UA) NEGATIVE NEGATIVE Urine Ketones 1+ H NEGATIVE Urine Nitrite NEGATIVE NEGATIVE Urine Bilirubin NEGATIVE NEGATIVE Urine Urobilinogen 0.2 < = 1.0 MG/DL Urine Leukocyte Esterase NEGATIVE NEGATIVE Urine RBC (Auto) NEGATIVE NEGATIVE Urine RBC NONE /HPF Urine WBC NONE /HPF Urine Squamous Epithelial Cells 2-5 /HPF Urine Crystals NONE /LPF Urine Bacteria NEGATIVE /HPF Urine Casts NONE /LPF Urine Mucus SMALL H /LPF Urine Culture Indicated NO Urine Opiates Screen NEGATIVE NEGATIVE Urine Oxycodone Screen NEGATIVE NEGATIVE Urine Methadone Screen NEGATIVE NEGATIVE Urine Propoxyphene Screen NEGATIVE NEGATIVE Urine Barbiturates Screen NEGATIVE NEGATIVE Ur Tricyclic Antidepressants Screen NEGATIVE NEGATIVE Urine Phencyclidine Screen NEGATIVE NEGATIVE Urine Amphetamines Screen NEGATIVE NEGATIVE Urine Methamphetamines Screen NEGATIVE NEGATIVE Urine Benzodiazepines Screen NEGATIVE NEGATIVE Urine Cocaine Screen NEGATIVE NEGATIVE Urine Cannabinoids Screen NEGATIVE NEGATIVE White Blood Count 6.5 4.3-11.0 10^3/uL Red Blood Count 4.79 3.80-5.11 10^6/uL Hemoglobin 14.4 11.5-16.0 g/dL Hematocrit 43 35-52 % Mean Corpuscular Volume 90 80-99 fL Mean Corpuscular Hemoglobin 30 25-34 pg Mean Corpuscular Hemoglobin Concent 33 32-36 g/dL Red Cell Distribution Width 12.0 10.0-14.5 % Platelet Count 247 130-400 10^3/uL Mean Platelet Volume 9.3 9.0-12.2 fL Immature Granulocyte % (Auto) 0 % Neutrophils (%) (Auto) 60 42-75 % Lymphocytes (%) (Auto) 30 12-44 % Monocytes (%) (Auto) 7 0-12 % Eosinophils (%) (Auto) 2 0-10 % Basophils (%) (Auto) 0 0-10 % Neutrophils # (Auto) 3.9 1.8-7.8 10^3/uL Lymphocytes # (Auto) 1.9 1.0-4.0 10^3/uL Monocytes # (Auto) 0.5 0.0-1.0 10^3/uL Eosinophils # (Auto) 0.1 0.0-0.3 10^3/uL Basophils # (Auto) 0.0 0.0-0.1 10^3/uL Immature Granulocyte # (Auto) 0.0 0.0-0.1 10^3/uL Sodium Level 141 135-145 MMOL/L Potassium Level 3.5 L 3.6-5.0 MMOL/L Chloride Level 103 98-107 MMOL/L Carbon Dioxide Level 24 21-32 MMOL/L Anion Gap 14 5-14 MMOL/L Blood Urea Nitrogen 14 7-18 MG/DL Creatinine 0.82 0.60-1.30 MG/DL Estimat Glomerular Filtration Rate > 60 BUN/Creatinine Ratio 17 Glucose Level 89 70-105 MG/DL Calcium Level 9.0 8.5-10.1 MG/DL Corrected Calcium 8.7 8.5-10.1 MG/DL Magnesium Level 2.1 1.6-2.4 MG/DL Total Bilirubin 0.4 0.1-1.0 MG/DL Aspartate Amino Transf (AST/SGOT) 19 5-34 U/L Alanine Aminotransferase (ALT/SGPT) 14 0-55 U/L Alkaline Phosphatase 59 40-136 U/L Total Protein 6.8 6.4-8.2 GM/DL Albumin 4.4 3.2-4.5 GM/DL TSH [place] Testing 1.50 0.35-4.94 UIU/ML Salicylates Level < 5.0 L 5.0-20.0 MG/DL Acetaminophen Level < 10 L 10-30 UG/ML Serum Alcohol < 10 <10 MG/DL My Orders Orders - SARAH WISE DO Urinalysis (08/09/20 23:26) Thyroid Analyzer (08/09/20 23:26) Drug Screen Stat (Urine) (08/09/20 23:26) Cbc With Automated Diff (08/09/20 23:26) Comprehensive Metabolic Panel (08/09/20 23:26) Alcohol (08/09/20 23:26) Acetaminophen (08/09/20 23:26) Salicylate (08/09/20 23:26) Ekg Tracing (08/09/20 23:26) Monitor-Rhythm Ecg Trace Only (08/09/20 23:26) Ondansetron Injection (Zofran Injectio (08/09/20 23:30) Ed Iv/Invasive Line Start (08/09/20 23:30) Lactated Ringers (Lr 1000 Ml Iv Solution (08/09/20 23:30) Magnesium (08/09/20 23:40) Ed Iv/Invasive Line Start (08/10/20 00:43) Lactated Ringers (Lr 1000 Ml Iv Solution (08/10/20 00:45) Acetaminophen Tablet (Tylenol Tablet) (08/10/20 00:45) Rx-Ondansetron Po (Rx-Zofran Po) (08/10/20 01:51) Medications Given in ED Vital Signs/I&O 08/09/20 08/10/20 23:24 01:55 Temp 36.0 36.2 Pulse 58 49 Resp 16 18 B/P (MAP) 128/80 (96) 125/77 (96) Pulse Ox 97 99 O2 Delivery Room Air Room Air Capillary Refill : Less Than 3 Seconds Blood Pressure Mean: 96 Progress Note : Progress Note GIVEN IV FLUIDS, ZOFRAN AND TORADOL WITH IMPROVEMENT IN SYMPTOMS PT ABLE TO TOLERATE WATER PRIOR TO DISMISSAL HEART RATE REMAINED IN 40'S TO 50, BUT REMAINED IN NORMAL RANGE, AND PT OTHERWISE ASYMPTOMATIC FROM LOW HEART RATE--NO DIZZINESS OR SYNCOPE, NO SHORTNESS OF BREATH, ETC. PT OBSERVED IN ER FOR 2 1/2 HOURS WITH NO DETERIORATION IN PT'S CONDITION PT FEELS COMFORTABLE GOING HOME RN CONTACTED POISON CONTROL AND WAS ADVISED THAT WAS VERY LOW POSSIBILITY THAT BRADYCARDIA WAS CAUSED FROM MEDICATION AND ADVISE SYMPTOMATIC/SUPPORTIVE CARE. PT ADVISED TO [facility] ECG Initial ECG Impression Date: Aug 09, 2020 Initial ECG Impression Time: 23:36 Initial ECG Rate: 44 Initial ECG Rhythm: S.Toan Departure Impression Primary Impression: Adverse drug reaction Additional Impression: ADVERSE REACTION TO SUBLOCADE Disposition: 01 HOME, SELF-CARE Condition: Improved Departure-Patient Inst. Referrals: SILVESTRE REYES MD (PCP/Family) Primary Care Physician Patient Instructions: Adverse Drug Reactions, Adult ED Add. Discharge Instructions: HOME, REST TYLENOL AND MOTRIN NEEDED FOR PAIN FOLLOW UP WITH [facility] TOMORROW FOR FURTHER CARE, RETURN TO ER IF WORSE All discharge instructions reviewed with patient and/or family. Voiced understanding. SARAH WISE DO Aug 10, 2020 01:52
[2020-08-10 01:55] VITALS: BP 125/77
== END 2020-08-10 01:55 | disposition home or self-care (01) ==
LOC: EDUNIT# 23:16 → ER 23:18
DX: R51.9 Headache, unspecified (principal); T50.905A Adverse effect of unspecified drugs, medicaments and biological substances, initial encounter; Z88.2 Allergy status to sulfonamides; Z88.1 Allergy status to other antibiotic agents; Z88.5 Allergy status to narcotic agent; Z87.891 Personal history of nicotine dependence
CPT/HCPCS: 80053; 80306; 81000; 84443; 93041; G0480 ×3; 36415; 80320; 80329; 83735; 85025; 93005

== ENCOUNTER → 2023-01-17 | Outpatient (CLI) | payer MEDICAID ==
[~2023-01-17] MED LIST changes: -DCS100C PO; +DOCU-239 PO
--- NOTE | 2023-01-17 13:03 | Diagnostic Imaging Report ---
INDICATION: survey. TECHNIQUE: Multiple real-time grayscale images were obtained over the gravid uterus. COMPARISON: None. FINDINGS: There is a single live fetus in a cephalic presentation. heart rate was recorded at 147 BPM. Placenta is anterior. No previa is detected. The amniotic fluid index is 22.4 cm. Cervical length is 3.5 cm. survey demonstrates kidneys, bladder and stomach to be unremarkable. brain is unremarkable. There is a four-chamber heart. There is a three-vessel cord with normal insertion. spine is unremarkable. Maternal adnexa was not evaluated. Biometrical measurements are as follows: Biparietal 7.52 cm, age 30 weeks 2 days. Head circumference 29.17 cm, age 32 weeks 2 days. Abdominal circumference 28.63 cm, age 32 weeks 5 days. Femur length 5.71 cm, age 30 weeks 0 days. Sonographic estimate age: 31 weeks 3 days. Sonographic estimated date of delivery: 03/18/2023. Estimated Weight: 1795 gm (+/- 262 gm). LMP percentile: 20%. heart rate: 147 beats per minute. number: 1 of 1. IMPRESSION: Single live IUP of approximately 31 weeks 3 days gestational age with estimated date of confinement sonographically of 03/18/2023. No complicating features are detected. Dictated by: Dictated on workstation # [id number]
== END ==
LOC: RAD 09:26
PROVIDERS: ATTEND Obstetrics & Gynecology
DX: O09.33 Supervision of pregnancy with insufficient antenatal care, third trimester (principal); Z3A.31 31 weeks gestation of pregnancy
CPT/HCPCS: 76805

== ENCOUNTER 2023-03-02 05:37 | Outpatient (CLI) | payer MEDICAID ==
[~2023-03-02] VITALS: Ht 162.6 cm; Wt 71.4 kg
[2023-03-02] MEDS ORDERED: SERT-412 PO (11:11)
== END 2023-03-02 11:31 | disposition home or self-care (01) ==
LOC: PREOP 05:37
PROVIDERS: ATTEND Obstetrics & Gynecology
DX: Z01.818 Encounter for other preprocedural examination (principal)

== ENCOUNTER 2023-03-09 05:12 | Inpatient (IN) | payer MEDICAID ==
[~2023-03-09] VITALS: Ht 164 cm; Wt 70.6 kg
[2023-03-09] VITALS (10 sets, daily range): BP systolic 106–128; BP diastolic 60–84
[~2023-03-09 05:12] MED LIST changes: +SERT-412 PO
[2023-03-09] MEDS ORDERED: CLINDAMYCIN 900 MG/50 ML IVPB 50 ML IV ONE ×2 (05:15→05:44)
[2023-03-09] MEDS ORDERED: FAMOTIDINE INJ 20MG/2ML VIAL IV ONE (05:15)
[2023-03-09] MEDS ORDERED: metroNIDAZOLE 500MG/100ML IVPB 100 ML IV ONE (05:15)
[2023-03-09] MEDS ORDERED: METOCLOPRAMIDE INJ 10 MG/2 ML IV ONE (05:15)
[2023-03-09] MEDS ORDERED: LACTATED RINGERS 1,000 ML 1,000 ML IV PRN ×2 (05:15)
[2023-03-09] MEDS ORDERED: CITRIC ACID/SODIUM CITRATE ORAL SOLN 30 ML PO ONE (05:15)
[2023-03-09] MEDS ORDERED: CITRIC ACID/SODIUM CITRATE ORAL SOLN 30 ML ONE (05:44)
[2023-03-09] MEDS ORDERED: metroNIDAZOLE 500MG/100ML IVPB 100 ML ONE (05:44)
[2023-03-09] MEDS ORDERED: METOCLOPRAMIDE INJ 10 MG/2 ML ONE (05:45)
[2023-03-09] MEDS ORDERED: FAMOTIDINE INJ 20MG/2ML VIAL ONE (05:45)
[2023-03-09 05:56] LABS: BASOPHILS % (AUTO) 0 % (0-10); EOSINOPHILS # (AUTO) 0.1 10^3/uL (0.0-0.3); EOSINOPHILS % (AUTO) 1 % (0-10); HEMATOCRIT 34 % (35-52); HEMOGLOBIN 11.3 g/dL (11.5-16.0); LYMPHOCYTES % (AUTO) 19 % (12-44); MEAN CORPUSCULAR HEMOGLOBIN 25 pg (25-34); MEAN CORPUSCULAR HGB CONC 33 g/dL (32-36); MEAN CORPUSCULAR VOLUME 75 fL (80-99); MEAN PLATELET VOLUME 9.2 fL (9.0-12.2); MONOCYTES % (AUTO) 9 % (0-12); NEUTROPHILS # (AUTO) 7.5 10^3/uL (1.8-7.8); NEUTROPHILS % (AUTO) 70 % (42-75); PLATELET COUNT 488 10^3/uL (130-400); WHITE BLOOD COUNT 10.7 10^3/uL (4.3-11.0)
[2023-03-09 05:57] LABS: AMPHETAMINE SCREEN, URINE NEGATIVE (NEGATIVE); BARBITURATE SCREEN URINE NEGATIVE (NEGATIVE); CANNABINOID SCREEN, URINE NEGATIVE (NEGATIVE); COCAINE SCREEN URINE NEGATIVE (NEGATIVE); METHADONE STAT NEGATIVE (NEGATIVE); OPIATE SCREEN URINE NEGATIVE (NEGATIVE); OXYCODONE STAT NEGATIVE (NEGATIVE); TRICYCLIC ANTIDEPRESSANTS SCRE NEGATIVE (NEGATIVE)
[2023-03-09] MEDS ORDERED: fentaNYL INJECTION 100 MCG/2 ML VIAL ONE (07:20)
--- NOTE | 2023-03-09 07:25 | History & Physical-OB ---
OB - Chief Complaint & HPI Date/Time Date of Admission: Date of Admission: Mar 09, 2023 at 05:12 Date seen by a Provider: Mar 09, 2023 Time Seen by a Provider: 07:00 Chief Complaint/History OB-Reason for Admission/Chief: Section Hx : 3 Hx Para: 2 Expected Date of Delivery: Mar 16, 2023 Gestational Age in Weeks: 39 Gestational Age in Days: 0 Indication for : desires repeat Admission Nurse Assessment Rev: Yes Allergies and Home Medications Allergies Coded Allergies: cefaclor (Verified Allergy, Unknown, 03/02/23) morphine (Verified Allergy, Unknown, 03/02/23) sulfamethoxazole (Verified Allergy, Unknown, 03/02/23) trimethoprim (Verified Allergy, Unknown, 03/02/23) Patient Home Medication List Home Medication List Reviewed: Yes Pnv Cmb#21/Iron/Folic Acid ( Complete Caplet) 1 Each Tablet, 1 EACH PO DAILY, (Reported) Entered as Reported by: MARINA GARDNER on 03/04/20 1538 Sertraline HCl (Sertraline HCl) 25 Mg Tablet, 25 MG PO DAILY, (Reported) Entered as Reported by: Barbara Kohler on 03/02/23 1111 Discontinued Medications Buprenorphine HCl (Buprenorphine HCl) 2 Mg Tab.subl, 2 MG SL TID, (Reported) Discontinued Reason: No Longer Taking Entered as Reported by: MARINA GARDNER on 03/04/20 1538 Docusate Sodium (Dok) 100 Mg Capsule, 100 MG PO BID PRN for CONSTIPATION-1ST LINE Discontinued Reason: No Longer Taking Prescribed by: JAROCHO GUSMAN on 03/12/20 1018 Hydrocodone Bit/Acetaminophen (HYDROcodone/APAP 7.5/325 TAB) 1 Ea Tablet, 1-2 EA PO Q6HR PRN for PAIN-MODERATE (5-7) Discontinued Reason: No Longer Taking Prescribed by: JAROCHO GUSMAN on 03/12/20 1018 Ibuprofen (Ibu) 600 Mg Tablet, 600 MG PO Q6HR Discontinued Reason: No Longer Taking Prescribed by: JAROCHO GUSMAN on 03/12/20 1018 Magnesium Oxide (Magnesium Oxide) 400 Mg Tablet, 400 MG PO DAILY, (Reported) Discontinued Reason: No Longer Taking Entered as Reported by: MARINA GARDNER on 03/04/20 1538 OB - History Hx of Present Care: Yes (late care starting at 27 weeks) Ultrasounds: Normal mid trimester US (3rd trimester dating US) Obstetrical Complications: None Medical Complications: None Delivery History Adverse Rxn to Tranfusion: No Patient Past Medical History HC history, Hx of Drug use Social History/Family History 2nd Hand Smoke Exposure: No Immunizations Influenza Vaccine Up-to-Date: No; Not Current Hepatitis A: Yes Hepatitis B: Yes Tetanus Booster (TDap): Unknown OB - Admission Exam Physical Exam Vitals: Vital Signs 03/09/23 05:38 Temp 36.8 Pulse 101 Resp 20 Pulse Ox 97 O2 Delivery Room Air HEENT: NCAT Heart: Rhythm Normal Lungs: Clear Abdomen: Gravid Extremities: Normal Reflexes: Normal Heart Rate: 130's Accelerations: Accelerations Present Decelerations: No Decelerations Short Term Variability: Present Penitentiary Variability: Average (6-25) Contractions on Admission: 6-10 Minutes Apart Intensity: Mild Labs Laboratory Tests Test 03/09/23 05:15 03/09/23 05:47 Range/Units Urine Opiates Screen NEGATIVE NEGATIVE Urine Oxycodone Screen NEGATIVE NEGATIVE Urine Methadone Screen NEGATIVE NEGATIVE Urine Barbiturates Screen NEGATIVE NEGATIVE Ur Tricyclic Antidepressants Screen NEGATIVE NEGATIVE Urine Phencyclidine Screen NEGATIVE NEGATIVE Urine Amphetamines Screen NEGATIVE NEGATIVE Urine Methamphetamines Screen NEGATIVE NEGATIVE Urine Benzodiazepines Screen NEGATIVE NEGATIVE Urine Cocaine Screen NEGATIVE NEGATIVE Urine Cannabinoids Screen NEGATIVE NEGATIVE White Blood Count 10.7 4.3-11.0 10^3/uL Red Blood Count 4.60 3.80-5.11 10^6/uL Hemoglobin 11.3 L 11.5-16.0 g/dL Hematocrit 34 L 35-52 % Mean Corpuscular Volume 75 L 80-99 fL Mean Corpuscular Hemoglobin 25 25-34 pg Mean Corpuscular Hemoglobin Concent 33 32-36 g/dL Red Cell Distribution Width 14.8 H 10.0-14.5 % Platelet Count 488 H 130-400 10^3/uL Mean Platelet Volume 9.2 9.0-12.2 fL Immature Granulocyte % (Auto) 1 % Neutrophils (%) (Auto) 70 42-75 % Lymphocytes (%) (Auto) 19 12-44 % Monocytes (%) (Auto) 9 0-12 % Eosinophils (%) (Auto) 1 0-10 % Basophils (%) (Auto) 0 0-10 % Neutrophils # (Auto) 7.5 1.8-7.8 10^3/uL Lymphocytes # (Auto) 2.0 1.0-4.0 10^3/uL Monocytes # (Auto) 1.0 0.0-1.0 10^3/uL Eosinophils # (Auto) 0.1 0.0-0.3 10^3/uL Basophils # (Auto) 0.0 0.0-0.1 10^3/uL Immature Granulocyte # (Auto) 0.1 0.0-0.1 10^3/uL OB - Assessment/Plan/Diagnosis Assessment Assessment: section Admission Dx 42 yo @ 39 weeks Previous x 2 GBS neg Admission Status: Inpatient Order (span 2 midnights) Reason for Inpatient Admission: RCS at 39 weeks Plan Plan: Section JAROCHO GUSMAN DO Mar 09, 2023 07:24
[2023-03-09] MEDS ORDERED: MEASLES, MUMPS, RUBELLA VACCINE (MMR) SC SCH (07:30)
[2023-03-09] MEDS ORDERED: ONDANSETRON INJECTION 4 MG/2 ML (SDV) IVP PRN (07:30)
[2023-03-09] MEDS ORDERED: NALOXONE 0.4 MG/ML 1 ML VIAL IV PRN (07:30)
[2023-03-09] MEDS ORDERED: Tetanus/Diphtheria/Pertussis (Acell) ADULT Vaccine 0.5 ML IM SCH (07:30)
[2023-03-09] MEDS ORDERED: OXYTOCIN DRIP PRE-MIX 500 ML IV ONE (07:58)
[2023-03-09] MEDS ORDERED: ONDANSETRON INJECTION 4 MG/2 ML (SDV) ONE (07:58)
[2023-03-09] MEDS: OXYTOCIN DRIP PRE-MIX 500 ML IV SCH ×2 (08:00→13:55)
[2023-03-09] MEDS ORDERED: BUPIVACAINE 0.5% 30 ML VIAL ONE (08:03)
[2023-03-09] MEDS: KETOROLAC INJ 30 MG/ML VIAL IV SCH ×3 (08:13→19:53)
[2023-03-09] MEDS: DOCUSATE SODIUM 100 MG CAPSULE PO SCH ×2 (10:46→19:53)
[2023-03-09] MEDS: HYDROcodone/ACETAMINOPHEN 5 MG/325 MG TABLET PO PRN ×3 (10:46→23:28)
[2023-03-09] MEDS ORDERED: CATHETER FLUSH 10 ML SYR IV SCH (14:00)
--- NOTE | 2023-03-09 16:15 | OPERATIVE REPORT ---
PREOPERATIVE DIAGNOSES: 1. A 42-year-old at 39 weeks' gestation. 2. Previous section x2. 3. Late care. POSTOPERATIVE DIAGNOSES: 1. A 42-year-old at 39 weeks' gestation. 2. Previous section x2. 3. Late care. PROCEDURE: Repeat low transverse section. SURGEON: Glenn Oshea DO ANESTHESIA: spinal. ESTIMATED BLOOD LOSS: 600. URINE OUTPUT: 75 mL clear at the end of the procedure. FLUIDS: 1000 mL lactated Ringer's solution. FINDINGS: A live female , weighing 7 pounds 7 ounces, Apgars of 7 and 8. Grossly normal appearing uterus, bilateral fallopian tubes and ovaries. SPECIMEN SENT: Placenta. INDICATIONS FOR PROCEDURE: This 42-year-old female is the patient who had sought care in my office. She had a late entry into care due to some social issues. A third trimester ultrasound dating giving an estimated due date making 39 weeks, as today's date. I discussed with the patient proceeding with repeat . She was agreeable to do so given her history of two prior cesareans. Risks of the procedure were discussed with the patient in detail including risk of bleeding, infection, damage to surrounding structures including but not limited to bowel, bladder, ureter, kidneys, possible need for reoperation, postoperative complications that may occur, recovery timeframe, risk from anesthesia and even . After everything was discussed with the patient in detail, consent was obtained, the patient was taken to the operating room. OPERATIVE DESCRIPTION IN DETAIL: Once in the operating room, where spinal anesthesia was administered and found to be adequate. She was placed in the supine position with leftward tilt, prepped and draped in normal sterile fashion where a timeout was performed. Anesthesia was tested. I then make a Pfannenstiel skin incision through the previously existing scar using knife and carried underlying fascia using Bovie cautery. The fascial incision extended laterally using Bovie cautery. Superior aspect of fascial incision was then grasped with Jackelyn clamps, tented up and dissected underlying rectus muscles. The inferior aspect of the fascial incision was then grasped with Jackelyn clamps, tented up and dissected off the underlying rectus muscles. The rectus muscles were dissected down the midline sharply, which exposed the peritoneum, which I entered bluntly and extended using blunt traction. Jose Manuel ring retractor was placed in the peritoneal incision, which offers excellent lateral sidewall retraction. I identified lower uterine segment was found to be thinned out and make a low transverse incision to the vesicouterine peritoneum and bluntly dissected off the lower uterine segment, creating a bladder flap. I then proceeded my myotomy until membranes were visualized, at which point I thinned uterine incision laterally and superiorly using bandage scissors. Amniotomy was performed in the process of doing this, clear fluid was noted. The is found in vertex presentation with gentle fundal pressure, the infant's head elevated up to the incision where the nares and oropharynx were bulb suctioned after delivery of the head, the anterior and posterior shoulders were delivered. The was brought to the operative field where cord was where the cord was duly clamped and cut and infant was handed off to waiting nurses in attendance. Cord blood was collected. Three-vessel cord with intact placenta was delivered spontaneously thereafter. IV Pitocin was initiated to facilitate uterine contraction. Uterine fundus confirmed by manual massage. The uterus was then exteriorized and cleared of all endometrial clots and debris. I then proceeded with closing the uterine incision using 0 Vicryl suture in a running locked fashion. Second layer of imbricating 0 Monocryl was placed. Excellent hemostasis was noted after doing this. I then placed the uterus back in pelvis and copiously irrigated the pelvis using normal saline. Once again and found to be normal female dissection planes. I placed Interceed antiadhesive over my low transverse incision. I removed the Jose Manuel ring retractor and then proceeded to close the peritoneum using 3-0 Vicryl suture in a running fashion. The rectus muscles were reapproximated using 3-0 Vicryl suture in interrupted fashion. The fascia was reapproximated using 0 Vicryl suture in a running fashion. The skin reapproximated using 4-0 Monocryl running subcuticular. Dermabond was applied to incision, sterile dressing with adhesive white tape. The patient tolerated the procedure well and sent to recovery area in stable condition. Lap and sponge counts were correct at the end of the procedure. Instrument counts correct as well 900 mg of clindamycin and 500 mg of Flagyl were given preoperatively for infection prophylaxis. Job ID: [id number] DocumentID: [id number] Dictated Date: 03/09/2023 08:22:59 Sludge Filtration Attendant Date: 03/09/2023 16:13:00 Dictated By: DO TRAVIS DOS SANTOS
[2023-03-10] MEDS: KETOROLAC INJ 30 MG/ML VIAL IV SCH (02:04)
[2023-03-10 03:00] VITALS: BP 114/68
[2023-03-10 06:11] LABS: BASOPHILS % (AUTO) 0 % (0-10); EOSINOPHILS # (AUTO) 0.2 10^3/uL (0.0-0.3); EOSINOPHILS % (AUTO) 2 % (0-10); HEMATOCRIT 30 % (35-52); HEMOGLOBIN 9.5 g/dL (11.5-16.0); LYMPHOCYTES # (AUTO) 1.7 10^3/uL (1.0-4.0); LYMPHOCYTES % (AUTO) 16 % (12-44); MEAN CORPUSCULAR HEMOGLOBIN 24 pg (25-34); MEAN CORPUSCULAR HGB CONC 32 g/dL (32-36); MEAN CORPUSCULAR VOLUME 77 fL (80-99); MEAN PLATELET VOLUME 9.3 fL (9.0-12.2); MONOCYTES # (AUTO) 1.2 10^3/uL (0.0-1.0); MONOCYTES % (AUTO) 10 % (0-12); NEUTROPHILS % (AUTO) 72 % (42-75); PLATELET COUNT 424 10^3/uL (130-400); WHITE BLOOD COUNT 11.2 10^3/uL (4.3-11.0)
[2023-03-10 08:00] VITALS: BP 118/75
[2023-03-10] MEDS: IBUPROFEN 600 MG TABLET PO SCH ×2 (08:15→13:55)
[2023-03-10] MEDS: DOCUSATE SODIUM 100 MG CAPSULE PO SCH (08:15)
[2023-03-10] MEDS: HYDROcodone/ACETAMINOPHEN 5 MG/325 MG TABLET PO PRN ×2 (08:15→14:03)
[2023-03-10] MEDS ORDERED: SIMETHICONE 80 MG CHEWABLE TABLET PO PRN (08:30)
[2023-03-10] MEDS ORDERED: FERR-74 PO (09:16)
[2023-03-10] MEDS ORDERED: IBUP-844 PO (09:16)
[2023-03-10] MEDS ORDERED: DOCU100C37 PO (09:16)
[2023-03-10] MEDS ORDERED: ACHD5005 PO (09:16)
--- NOTE | 2023-03-10 09:26 | Discharge Summary ---
Discharge Summary Hospital Course Problems Reviewed?: Yes Hospital Course Date of Admission: Mar 09, 2023 at 05:12 Admission Diagnosis : Family Physician/Provider: Renate Ocasio MD Date of Discharge: 03/10/23 Discharge Diagnosis: s/p RLTCS Hospital Course: This 42-year-old was admitted at 39 weeks EGA for repeat low-transverse section which she delivered a liveborn female . She did very well postoperatively. Her hemoglobin was 9.5. She was started on iron supplementation. She was up and ambulating without difficulty. She requested to be discharged on postop day #1. Her vitals were all stable and her pain was well controlled. Patient was continued on her sertraline 25 mg and instructed to follow-up in 2 weeks for mental health check. depression precautions were discussed with the patient as well as postop section instructions. Labs and Pending Lab Test: Laboratory Tests 03/10/23 05:40: White Blood Count 11.2H, Red Blood Count 3.92, Hemoglobin 9.5L, Hematocrit 30L, Mean Corpuscular Volume 77L, Mean Corpuscular Hemoglobin 24L, Mean Corpuscular Hemoglobin Concent 32, Red Cell Distribution Width 14.8H, Platelet Count 424H, Mean Platelet Volume 9.3, Immature Granulocyte % (Auto) 1, Neutrophils (%) (Auto) 72, Lymphocytes (%) (Auto) 16, Monocytes (%) (Auto) 10, Eosinophils (%) (Auto) 2, Basophils (%) (Auto) 0, Neutrophils # (Auto) 8.0H, Lymphocytes # (Auto) 1.7, Monocytes # (Auto) 1.2H, Eosinophils # (Auto) 0.2, Basophils # (Auto) 0.0, Immature Granulocyte # (Auto) 0.1 Microbiology 03/09/23 MRSA Screen - Final, Complete MRSA not isolated Home Meds Active Ferrous Sulfate 325 Mg (65 Mg Iron) Tablet 325 Mg PO DAILY Docusate Sodium 100 Mg Capsule 100 Mg PO BID Take 1 tablet twice a day Ibu (Ibuprofen) 600 Mg Tablet 600 Mg PO Q6H Take 1 tablet every 6 hours as needed for pain Reported Sertraline HCl 25 Mg Tablet 25 Mg PO DAILY Complete Caplet (Pnv Cmb#21/Iron/Folic Acid) 1 Each Tablet 1 Each PO DAILY Activity: Activity as Tolerated Driving Instructions: You May Drive (once you stop taking pain medications) NO SMOKING: NO SMOKING Nothing Inside Vagina: No Douching, No Vona, No Tampons Discharge Diet: Regular Diet Symptoms to Report to : Pain Increased, Fever Over 101 Degrees F, Pain/Pressure in Chest, Vaginal Bleeding Increase, Vaginal Discharge Foul, Nausea/Vomiting For Any Problems or Questions: Go to Emergency Room Infection Signs and Symptoms: Increased Redness, Foul Odor of Wound, Increased Drainage, Skin Itchy or Has a Rash, Increased Swelling, Temperature Above 101 F Operative Area Clean and Dry: Keep Incision Clean/Dry Stitches/Pablo/Dermabond: Dermabond Discharge Physical Examination Allergies: Coded Allergies: cefaclor (Verified Allergy, Unknown, 03/02/23) morphine (Verified Allergy, Unknown, 03/02/23) sulfamethoxazole (Verified Allergy, Unknown, 03/02/23) trimethoprim (Verified Allergy, Unknown, 03/02/23) Vitals & I&Os Vital Signs Date Time Temp Pulse Resp B/P (MAP) Pulse Ox O2 Delivery O2 Flow Rate FiO2 03/10/23 08:00 36.8 78 18 118/75 (89) 99 Room Air Discharge Summary Date of Admission Mar 09, 2023 at 05:12 Date of Discharge Supervisory-Addendum Brief Verification & Attestation Participated in pt care: history, MDM, physical Personally performed: exam, history, MDM, supervision of care Care discussed with: other Procedures: n/a Results interpretation: Verified all documentation I saw and examined this patient MARIBEL GUILLERMO DO Mar 10, 2023 09:26
--- NOTE | 2023-03-10 09:31 | Postpartum Progress Note ---
Post Op Post-operative Day #1 Subjective: Patient is status post repeat LTCS. She is doing very well and has no concerns. Her pain is well controlled. She has been up and ambulating. She has urinated on her own. She is tolerating her diet. Patient is requesting to be DC charged to home today. Patient is breast-feeding. Patient did have question regarding her old Nexplanon device which is in the subdermal area on her left upper extremity. Patient states that it is 9 and half years old. I discussed with patient about removing it in the office when she comes in for her visit. Objective: VSS AF Physical Exam: General - Alert and oriented, no apparent distress Breasts are symmetrical no erythema or edema or engorgement Abdomen - Soft, appropriately tender to palpation, non-distended, fundus firm at umbilicus Incision - clean, dry and intact; no erythema or induration, no drainage Lochia minimal Extremities - no edema, negative Kristin's bilaterally Assessment: [] post-operative day # 1, status post RLTCS Recovering well, hemodynamically stable Nexplanon device Left upper extremity Plan: Routine post-operative care. Encourage breast feeding. Encourage ambulation. VTE prophylaxis: SCDs. Ferrous sulfate supplementation. Plan for discharge [] Vitals - Labs Vital Signs - I&O Vital Signs Date Time Temp Pulse Resp B/P (MAP) Pulse Ox O2 Delivery O2 Flow Rate FiO2 03/10/23 08:00 36.8 78 18 118/75 (89) 99 Room Air 03/10/23 03:00 36.0 75 18 114/68 (83) 96 Room Air 03/09/23 23:30 36.5 75 16 108/71 (83) 97 Room Air 03/09/23 19:55 36.4 89 18 128/69 (88) 97 Room Air 03/09/23 16:35 37.1 88 18 118/65 (82) 97 Room Air 03/09/23 13:55 37.0 90 18 114/66 (82) 96 Room Air I & O 03/10/23 06:59 Intake Total 2300 ml Output Total 1875 ml Balance 425 ml Labs Laboratory Tests 03/10/23 05:40: White Blood Count 11.2H, Red Blood Count 3.92, Hemoglobin 9.5L, Hematocrit 30L, Mean Corpuscular Volume 77L, Mean Corpuscular Hemoglobin 24L, Mean Corpuscular Hemoglobin Concent 32, Red Cell Distribution Width 14.8H, Platelet Count 424H, Mean Platelet Volume 9.3, Immature Granulocyte % (Auto) 1, Neutrophils (%) (Auto) 72, Lymphocytes (%) (Auto) 16, Monocytes (%) (Auto) 10, Eosinophils (%) (Auto) 2, Basophils (%) (Auto) 0, Neutrophils # (Auto) 8.0H, Lymphocytes # (Auto) 1.7, Monocytes # (Auto) 1.2H, Eosinophils # (Auto) 0.2, Basophils # (Auto) 0.0, Immature Granulocyte # (Auto) 0.1 Microbiology 03/09/23 MRSA Screen - Final, Complete MRSA not isolated MARIBEL GUILLERMO DO Mar 10, 2023 09:31
--- NOTE | 2023-03-10 12:22 | Anesthesia-Regional Post-Op ---
Regional Patient Condition Mental Status: Alert, Oriented x3 Circulation: Same as Pre-Op Headache: Absent Sensation: Full Recovery Motor Block: Absent Post Op Complications Complications None Follow Up Care/Instructions Patient Instructions None needed. Anesthesia/Patient Condition Patient is doing well, no complaints, stable vital signs, no apparent adverse anesthesia problems. No complications reported per nursing. DEBBIE BORRERO CRNA Mar 10, 2023 12:22
[2023-03-10 13:45] VITALS: BP 109/64
[2023-03-10 17:30] VITALS: BP 109/64
== END 2023-03-10 17:30 | disposition home or self-care (01) | DRG 788 ==
LOC: LDRP 05:12
PROVIDERS: ADMIT Obstetrics & Gynecology; ATTEND Obstetrics & Gynecology
PROC: 10D00Z1 Extraction of Products of Conception, Low, Open Approach (ICD-10-PCS; principal; 2023-03-09 07:26)
DX: O34.211 Maternal care for low transverse scar from previous cesarean delivery (principal); Z3A.39 39 weeks gestation of pregnancy; Z37.0 Single live birth
CPT/HCPCS: 36415; 80306; 85025; 86850; 86900; 86901; 87081; 90715; 94664

== ENCOUNTER → 2023-03-22 | Outpatient (CLI) | payer MEDICAID ==
[~2023-03-22] MED LIST changes: +ACHD5005 PO; +DOCU100C37 PO; +FERR-74 PO
[2023-03-22 11:21] LABS: URINE CREATININE FOR RATIO 18 MG/DL (30-125)
[2023-03-22 11:22] LABS: URINE PROTEIN FOR RATIO ONLY < 6 MG/DL (6-12)
== END ==
LOC: LABNPT 10:57
PROVIDERS: ATTEND Nurse Practitioner Women's Health
DX: O13.9 Gestational [pregnancy-induced] hypertension without significant proteinuria, unspecified trimester (principal); Z3A.00 Weeks of gestation of pregnancy not specified
CPT/HCPCS: 82570; 84156